=== PATIENT | male | born 1945 | race African-American/Black ===

== ENCOUNTER 2017-02-14 13:24 | Emergency (ER) | payer MEDICARE, MEDICAID ==
[~2017-02-14] VITALS: Ht 189.2 cm; Wt 100.0 kg
[~2017-02-14 13:24] MED LIST: HTN MEDS; METFORMIN; POTASSIUM
[2017-02-14 13:35] VITALS: BP 132/76
== END 2017-02-14 16:43 | disposition home or self-care (01) ==
LOC: ER 14:47
DX: L03.114 Cellulitis of left upper limb (principal); E11.9 Type 2 diabetes mellitus without complications; I10 Essential (primary) hypertension; Z87.891 Personal history of nicotine dependence; Z96.649 Presence of unspecified artificial hip joint
CPT/HCPCS: 99283

== ENCOUNTER 2018-03-25 12:11 | Emergency (ER) | payer MEDICARE, MEDICAID ==
[~2018-03-25] VITALS: Ht 190.5 cm; Wt 96.0 kg
[2018-03-25 16:31] VITALS: BP 142/88
== END 2018-03-25 16:33 | disposition home or self-care (01) ==
LOC: ER 12:11
DX: K08.89 Other specified disorders of teeth and supporting structures (principal); R07.0 Pain in throat; E11.9 Type 2 diabetes mellitus without complications; I10 Essential (primary) hypertension; Z96.643 Presence of artificial hip joint, bilateral
CPT/HCPCS: 87070; 87430; 99283

== ENCOUNTER 2019-10-20 14:06 | Emergency (ER) | payer MEDICARE, MEDICAID ==
[~2019-10-20] VITALS: Ht 188 cm; Wt 96.0 kg
[2019-10-20] MEDS ORDERED: KETOROLAC 15MG/ML VIAL IV ONE (16:30)
[2019-10-20 16:42] LABS: BASOPHILS % 0.4 % (0.0-2.0); EOSINOPHILS % 3.8 % (0.0-5.0); HEMATOCRIT. 32.6 % (42.0-52.0); LYMPHOCYTES % 18.6 % (20.0-50.0); MEAN CORPUSCULAR HEMOGLOBIN 29.5 pg (28.0-32.0); MEAN CORPUSCULAR VOLUME 87.5 fL (80.0-94.0); MEAN PLATELET VOLUME 7.4 fl (7.4-10.4); MONOCYTES % 11.7 % (2.0-8.0); NEUTROPHILS % 65.5 % (40.0-76.0); PLATELET 259 x1000/uL (130-400); RED BLOOD CELL COUNT 3.73 mill/uL (4.7-6.1); RED CELL DISTRIBUTION WIDTH 13.2 % (11.6-14.6)
[2019-10-20 16:46] LABS: CHLORIDE 104 mEq/L (98-107)
[2019-10-20] MEDS ORDERED: ASPIRIN 325MG TABLET PO ONE (17:15)
[2019-10-20 19:00] VITALS: BP 146/88
== END 2019-10-20 19:19 | disposition home or self-care (01) ==
LOC: ER 14:06 → CANBEDREQ 19:25
DX: R79.89 Other specified abnormal findings of blood chemistry (principal); R06.00 Dyspnea, unspecified; E11.9 Type 2 diabetes mellitus without complications; I10 Essential (primary) hypertension; Z79.84 Long term (current) use of oral hypoglycemic drugs; Z96.649 Presence of unspecified artificial hip joint
CPT/HCPCS: 36415; 71045; 80053; 83880; 84484; 85025; 93005; 96374; 99284; J1885

== ENCOUNTER 2020-01-10 14:23 | Emergency (ER) | payer MEDICARE, MEDICAID ==
[~2020-01-10] VITALS: Ht 188 cm; Wt 94.0 kg
[2020-01-10 20:46] LABS: BASOPHILS % 0.8 % (0.0-2.0); HEMOGLOBIN. 12.6 g/dL (14.0-18.0); LYMPHOCYTES % 37.8 % (20.0-50.0); MEAN CORPUSCULAR HEMOGLOBIN 29.9 pg (28.0-32.0); MEAN CORPUSCULAR VOLUME 87.7 fL (80.0-94.0); MEAN PLATELET VOLUME 7.3 fl (7.4-10.4); NEUTROPHILS % 46.4 % (40.0-76.0); PLATELET 170 x1000/uL (130-400); RED BLOOD CELL COUNT 4.21 mill/uL (4.7-6.1); RED CELL DISTRIBUTION WIDTH 14.1 % (11.6-14.6)
[2020-01-10 21:06] VITALS: BP 144/79
== END 2020-01-10 23:37 | disposition home or self-care (01) ==
LOC: ER 14:34
DX: R60.0 Localized edema (principal); E11.9 Type 2 diabetes mellitus without complications; I10 Essential (primary) hypertension; Z96.649 Presence of unspecified artificial hip joint
CPT/HCPCS: 36415; 82962; 85025; 85379; 93971; 99284

== ENCOUNTER 2020-05-09 15:38 | Emergency (ER) | payer MEDICARE, MEDICAID ==
[~2020-05-09] VITALS: Ht 188 cm; Wt 95.0 kg
[2020-05-09] MEDS ORDERED: FUROSEMIDE 20MG/2ML VIAL IVP ONE (16:15)
[2020-05-09 16:43] LABS: BASOPHILS % 1.1 % (0.0-2.0); EOSINOPHILS % 4.9 % (0.0-5.0); HEMATOCRIT. 33.6 % (42.0-52.0); HEMOGLOBIN. 11.2 g/dL (14.0-18.0); LYMPHOCYTES % 21.4 % (20.0-50.0); MEAN CORPUSCULAR HEMOGLOBIN 29.9 pg (28.0-32.0); MEAN CORPUSCULAR VOLUME 89.5 fL (80.0-94.0); MEAN PLATELET VOLUME 7.4 fl (7.4-10.4); NEUTROPHILS % 65.6 % (40.0-76.0); PLATELET 266 x1000/uL (130-400); RED BLOOD CELL COUNT 3.76 mill/uL (4.7-6.1); RED CELL DISTRIBUTION WIDTH 14.3 % (11.6-14.6)
[2020-05-09 16:51] LABS: CHLORIDE 103 mEq/L (98-107)
[2020-05-09] MEDS ORDERED: POTASSIUM CHLORIDE 20MEQ TABLET SR PO ONE (17:15)
[2020-05-09 18:45] VITALS: BP 146/87
== END 2020-05-09 19:04 | disposition left against medical advice (07) ==
LOC: ER 15:38
DX: Z20.828 Contact with and (suspected) exposure to other viral communicable diseases (principal); I11.0 Hypertensive heart disease with heart failure; I50.41 Acute combined systolic (congestive) and diastolic (congestive) heart failure; J18.9 Pneumonia, unspecified organism; E87.6 Hypokalemia
CPT/HCPCS: 36415; 71045; 80053; 83880; 84484; 85025; 93005; 93970; 99285; J1940

== ENCOUNTER 2020-07-20 23:10 | Emergency (ER) | payer MEDICARE, MEDICAID ==
[~2020-07-20] VITALS: Ht 188 cm; Wt 104.0 kg
[2020-07-20] MEDS ORDERED: ACETAMINOPHEN 325MG TABLET PO ONE (23:45)
[2020-07-21 00:10] LABS: BASOPHILS % 0.6 % (0.0-2.0); EOSINOPHILS % 4.5 % (0.0-5.0); HEMATOCRIT. 34.3 % (42.0-52.0); HEMOGLOBIN. 11.4 g/dL (14.0-18.0); LYMPHOCYTES % 25.4 % (20.0-50.0); MEAN CORPUSCULAR HEMOGLOBIN 28.9 pg (28.0-32.0); MEAN CORPUSCULAR VOLUME 87.3 fL (80.0-94.0); MEAN PLATELET VOLUME 7.7 fl (7.4-10.4); MONOCYTES % 9.6 % (2.0-8.0); NEUTROPHILS % 59.9 % (40.0-76.0); PLATELET 169 x1000/uL (130-400); RED BLOOD CELL COUNT 3.94 mill/uL (4.7-6.1); RED CELL DISTRIBUTION WIDTH 14.6 % (11.6-14.6)
[2020-07-21 00:11] LABS: CHLORIDE 102 mEq/L (98-107)
[2020-07-21 00:16] LABS: PARTIAL THROMBOPLASTIN TIME 31.1 sec (23.4-31.0); PROTHROMBIN TIME 10.6 sec (9.6-11.0)
[2020-07-21] MEDS ORDERED: ASPIRIN 81MG TABLET PO ONE (01:30)
[2020-07-21] MEDS ORDERED: CEFTRIAXONE 1 G PREMIX 50 ML IV ONE (01:30)
[2020-07-21] MEDS ORDERED: AZITHROMYCIN 500 MG in DEXT 5% WATER 250 ML IV ONE (01:30)
[2020-07-21] MEDS ORDERED: NITROGLYCERIN OINT 1GM/INCH UDPKT TD ONE (01:30)
[2020-07-21] MEDS ORDERED: FUROSEMIDE 40MG/4ML VIAL IV ONE (01:30)
[2020-07-21 02:47] VITALS: BP 145/82
== END 2020-07-21 02:10 | disposition left against medical advice (07) ==
LOC: ER 23:22
DX: I21.4 Non-ST elevation (NSTEMI) myocardial infarction (principal); E11.9 Type 2 diabetes mellitus without complications; I10 Essential (primary) hypertension; Z79.84 Long term (current) use of oral hypoglycemic drugs
CPT/HCPCS: 36415; 71045; 80053; 82962; 83880; 84484; 85025; 85610; 85730; 93005; 93970; 99285; J0456; J7060

== ENCOUNTER 2023-06-27 20:50 | Inpatient (IN) | payer MEDICARE, MEDICAID ==
[~2023-06-27] VITALS: Ht 188 cm; Wt 104.0 kg
[2023-06-27 22:06] LABS: BASOPHILS % 0.6 % (0.0-2.0); EOSINOPHILS % 9.3 % (0.0-5.0); HEMATOCRIT. 32.2 % (42.0-52.0); HEMOGLOBIN. 10.4 g/dL (14.0-18.0); LYMPHOCYTES % 19.7 % (20.0-50.0); MEAN CORPUSCULAR HEMOGLOBIN 27.5 pg (28.0-32.0); MEAN CORPUSCULAR HGB CONC 32.2 g/dL (31.0-37.0); MEAN CORPUSCULAR VOLUME 85.4 fL (80.0-94.0); MEAN PLATELET VOLUME 7.5 fl (7.4-10.4); MONOCYTES % 6.7 % (2.0-8.0); NEUTROPHILS % 63.7 % (40.0-76.0); PLATELET 175 x1000/uL (130-400); RED BLOOD CELL COUNT 3.77 mill/uL (4.7-6.1); RED CELL DISTRIBUTION WIDTH 14.5 % (11.6-14.6); WHITE BLOOD COUNT 4.8 x1000/uL (4.5-11.0)
[2023-06-27 22:16] LABS: PARTIAL THROMBOPLASTIN TIME 27.3 sec (23.4-31.0); PROTHROMBIN TIME 10.9 sec (9.6-11.0)
[2023-06-27 22:19] LABS: CHLORIDE 104 mEq/L (98-107); INDEX HEMOLYSI 1 (1-3); INDEX ICTERIC 1 (1-4); INDEX LIPEMIC 1 (1-3); SODIUM 137 mEq/L (136-145)
[2023-06-27 22:30] LABS: ALANINE AMINOTRANSFERASE 33 IU/L (13-61); ALBUMIN 3.2 g/dL (3.4-5.0); ASPARTATE AMINOTRANSFERASE 52 IU/L (15-37); BILIRUBIN TOTAL 0.7 mg/dL (0.1-1.0); CALCIUM 8.6 mg/dL (8.5-10.1); CARBON DIOXIDE 26 mEq/L (21-32); GLUCOSE 137 mg/dL (70-105); PROTEIN TOTAL 8.5 g/dL (6.0-8.3); UREA NITROGEN BLOOD 11 mg/dL (7-21)
[2023-06-27 22:32] LABS: TROPONIN I HIGH SENSITIVITY 181 ng/L (<78)
[2023-06-27] MEDS ORDERED: ALBUTEROL (0.5%) 2.5MG/0.5ML NEB HHN ONE (23:30)
[2023-06-27] MEDS ORDERED: ASPIRIN 325MG EC TABLET PO ONE (23:30)
[2023-06-28 00:36] LABS: CLARITY URINE CLEAR (CLEAR); COLOR URINE YELLOW (YELLOW); GLUCOSE URINE 3+ (NEGATIVE); KETONES URINE NEGATIVE (NEGATIVE); LEUKOCYTE ESTERASE URINE NEGATIVE (NEGATIVE); NITRITE URINE NEGATIVE (NEGATIVE); OCCULT BLOOD URINE TRACE (NEGATIVE); PROTEIN URINE 1+ (NEGATIVE); SPECIFIC GRAVITY URINE 1.017 (1.005-1.030)
[2023-06-28 00:41] VITALS: PULSE 91; RESP 21; O2SAT 96
[2023-06-28 01:04] LABS: RBC URINE 0-2 /hpf (0-2); SQUAMOUS EPITHELIAL CELL URINE NONE SEEN /lpf (RARE/1+)
[2023-06-28 01:05] LABS: BACTERIA URINE TRACE; WBC URINE 0-2 /hpf (0-2)
[2023-06-28] MEDS: POTASSIUM CHLORIDE 20MEQ/PACKET PO NR (02:47)
[2023-06-28] MEDS ORDERED: ONDANSETRON HCL 4MG/2ML INJ IV PRN (03:15)
[2023-06-28] MEDS ORDERED: ZOLPIDEM TARTRATE 5MG TABLET PO PRN (03:15)
[2023-06-28] MEDS ORDERED: ACETAMINOPHEN 325MG TABLET PO PRN ×2 (03:15)
[2023-06-28] MEDS ORDERED: DEXTROSE 50% WATER 50ML SYRINGE IV PRN (03:15)
[2023-06-28] MEDS ORDERED: IPRATROPIUM/ALBUTEROL 0.5-3(2.5)MG/3ML NEB HHN PRN (03:15)
[2023-06-28] MEDS ORDERED: DIPHENHYDRAMINE 50MG/ML VIAL IV PRN (03:15)
[2023-06-28] MEDS ORDERED: GUAIFENESIN 200MG/10ML SUGAR FREE UDC PO PRN (03:15)
[2023-06-28] MEDS: SODIUM CHLORIDE 0.9% INJ 3ML FLUSH IVF SCH ×2 (06:00→14:26)
[2023-06-28] MEDS: BLOOD SUGAR DIAGNOSTIC STRIP TEST SCH ×2 (06:40→12:29)
[2023-06-28] MEDS: INSULIN LISPRO 100 UNITS/ML SUBCUT SCH ×2 (07:32→12:33)
[2023-06-28] MEDS ORDERED: METFORMIN HCL 500MG TABLET PO SCH (07:40)
[2023-06-28 08:48] VITALS: BP 156/90; PULSE 81; RESP 20; TEMP 97.6
[2023-06-28] MEDS: POTASSIUM CHLORIDE 20MEQ TABLET SR PO SCH ×2 (08:51→13:00)
[2023-06-28] MEDS ORDERED: FUROSEMIDE 40MG/4ML VIAL IVP SCH (09:00)
[2023-06-28] MEDS ORDERED: CARVEDILOL 3.125 MG TABLET PO SCH (09:00)
[2023-06-28] MEDS ORDERED: ENOXAPARIN 30MG/0.3ML SYR SUBCUT SCH (09:00)
[2023-06-28] MEDS ORDERED: LISINOPRIL 5MG TABLET PO SCH (09:00)
[2023-06-28 09:57] LABS: TROPONIN I HIGH SENSITIVITY 210 ng/L (<78)
[2023-06-28 10:14] VITALS: BP 156/90; PULSE 95; RESP 20; TEMP 97.9
[2023-06-28 10:42] VITALS: BP 149/85; PULSE 81; RESP 20; TEMP 97.9
[2023-06-28] MEDS ORDERED: MAGNESIUM 2 G PREMIX 50 ML IV SCH (11:00)
[2023-06-28 11:46] LABS: INDEX HEMOLYSI 1 (1-3); INDEX ICTERIC 1 (1-4); INDEX LIPEMIC 1 (1-3)
[2023-06-28 11:52] LABS: IRON 76 ug/dL (50-175); TOTAL IRON BINDING CAPACITY 346 ug/dL (250-450)
[2023-06-28 12:00] VITALS: BP 147/79; PULSE 75; RESP 20; TEMP 97.7
[2023-06-28 12:01] LABS: CREATINE KINASE MB FRACTION 12.9 ng/mL (0.5-3.6)
[2023-06-28] MEDS ORDERED: SPIRONOLACTONE 25MG TABLET PO SCH (13:00)
[2023-06-28] MEDS ORDERED: IPRATROPIUM/ALBUTEROL 0.5-3(2.5)MG/3ML NEB HHN SCH (18:00)
[2023-06-28] MEDS ORDERED: BUDESONIDE 0.5MG/2ML NEB HHN SCH (18:00)
== END 2023-06-28 14:50 | disposition left against medical advice (07) | DRG 280 ==
LOC: ER 22:48 → 8WST 06-28 02:01
PROVIDERS: ADMIT Internal Medicine; ATTEND Internal Medicine
DX: I11.0 Hypertensive heart disease with heart failure (principal); I50.43 Acute on chronic combined systolic (congestive) and diastolic (congestive) heart failure; I21.A1 Myocardial infarction type 2; J96.00 Acute respiratory failure, unspecified whether with hypoxia or hypercapnia; J44.1 Chronic obstructive pulmonary disease with (acute) exacerbation; E44.1 Mild protein-calorie malnutrition; R59.0 Localized enlarged lymph nodes; Z60.2 Problems related to living alone; E87.6 Hypokalemia; E11.9 Type 2 diabetes mellitus without complications; D64.9 Anemia, unspecified; E83.42 Hypomagnesemia; Z53.29 Procedure and treatment not carried out because of patient's decision for other reasons; Z96.643 Presence of artificial hip joint, bilateral; M19.90 Unspecified osteoarthritis, unspecified site; Z87.891 Personal history of nicotine dependence; Z79.899 Other long term (current) drug therapy; Z68.29 Body mass index [BMI] 29.0-29.9, adult
CPT/HCPCS: 36415; 71045; 80053; 80061; 81003; 82550; 82553; 82728; 82962; 83036; 83540; 83550; 83735; 83880; 84484; 85025; 93005; 93970; 94640; 99285; J1650; J1940; J3475

== ENCOUNTER 2024-04-13 11:13 | Inpatient (IN) | payer MEDICARE, MEDICAID ==
[~2024-04-13] VITALS: Ht 188 cm; Wt 105.3 kg
[2024-04-13 11:20] VITALS: RESP 40
[2024-04-13] MEDS ORDERED: VANCOMYCIN 1G PREMIX 200 ML IV ONE (12:00)
[2024-04-13 12:23] LABS: CHLORIDE 94 mEq/L (98-107); POTASSIUM 4.8 mEq/L (3.5-5.1); SODIUM 133 mEq/L (136-145)
[2024-04-13 12:24] LABS: CARBON DIOXIDE 26 mEq/L (21-32)
[2024-04-13 12:29] LABS: CREATININE 1.7 mg/dL (0.6-1.3); GLUCOSE 152 mg/dL (70-105); UREA NITROGEN BLOOD 42 mg/dL (9-23)
[2024-04-13 12:36] LABS: TROPONIN I HIGH SENSITIVITY 276 ng/L (3.0-53)
[2024-04-13 12:38] LABS: HEMATOCRIT. 31.6 % (42.0-52.0); HEMOGLOBIN. 10.1 g/dL (14.0-18.0); MEAN CORPUSCULAR HEMOGLOBIN 26.3 pg (28.0-32.0); MEAN CORPUSCULAR VOLUME 82.4 fL (80.0-94.0); MEAN PLATELET VOLUME 9.2 fl (7.4-10.4); PLATELET 155 x1000/uL (130-400); RED BLOOD CELL COUNT 3.84 mill/uL (4.7-6.1); RED CELL DISTRIBUTION WIDTH 16.1 % (11.6-14.6); WHITE BLOOD COUNT 7.2 x1000/uL (4.5-11.0)
[2024-04-13 12:44] LABS: CREATINE KINASE 30722 IU/L (46-171)
[2024-04-13] MEDS ORDERED: FUROSEMIDE 40MG/4ML VIAL IVP ONE (12:45)
[2024-04-13] MEDS ORDERED: ENALAPRIL 2.5MG/2ML VIAL 2ML IV ONE (12:45)
[2024-04-13 12:49] LABS: DIFFERENTIAL COMMENT 1
[2024-04-13] MEDS: ENALAPRIL 1.25MG/ML VIAL 1ML IV NR (13:00)
[2024-04-13 13:16] VITALS: RESP 28
[2024-04-13 13:29] LABS: BG BASE EXCESS 4.3 mmol/L (-2.0-2.0); BG CARBOXYHEMOGLOBIN 0.1 % (0.5-1.5); BG DEOXYHEMOGLOBIN 0.3 % (0.0-5.0); BG FRACTION INSPIRED OXYGEN 100; BG HCO3 ACT 26.9 mmol/L (22.0-26.0); BG METHEMOGLOBIN 0.5 % (0.0-1.5); BG OXYGEN SATURATION 99.7 % (92.0-98.5); BG OXYHEMOGLOBIN 99.1 % (94.0-97.0); BG PCO2 32.9 mmHg (35.0-45.0); BG PO2 541.9 mmHg (75.0-100.0); BG SAMPLE SITE LEFT RADIAL; BG TOTAL HEMOGLOBIN 10.8 g/dL (12.0-18.0)
[2024-04-13 13:56] LABS: ANISOCYTOSIS 1+; PLATELET ESTIMATE NORMAL
[2024-04-13] MEDS ORDERED: LORAZEPAM 0.5MG TABLET PO PRN (14:45)
[2024-04-13] MEDS ORDERED: DOCUSATE SODIUM 100MG CAPSULE PO PRN (14:45)
[2024-04-13] MEDS ORDERED: ENOXAPARIN 40MG/0.4ML SYR SUBCUT SCH (14:45)
[2024-04-13 14:50] VITALS: RESP 28
[2024-04-13] MEDS: FUROSEMIDE 40MG/4ML VIAL IVP NR (14:58)
[2024-04-13] MEDS: VANCOMYCIN 1G PREMIX 200 ML IV NR (14:58)
[2024-04-13 15:43] LABS: IRON 23 ug/dL (65-175)
[2024-04-13 15:44] LABS: TRIGLYCERIDE 79 mg/dL (0-150)
[2024-04-13 15:45] LABS: LDL CHOLESTEROL 22 mg/dL (5-100)
[2024-04-13 15:46] LABS: ALANINE AMINOTRANSFERASE 142 IU/L (10-49); ALBUMIN 3.1 g/dL (3.2-4.8); ASPARTATE AMINOTRANSFERASE 652 IU/L (<34); BILIRUBIN DIRECT 1.9 mg/dL (<=3.0); BILIRUBIN TOTAL 2.8 mg/dL (0.1-1.0); CHOLESTEROL 79 mg/dL (<200); HDL CHOLESTEROL 37 mg/dL (>55); PROTEIN TOTAL 7.7 g/dL (6.0-8.3); TOTAL IRON BINDING CAPACITY 306 ug/dl (250-425)
[2024-04-13 15:49] LABS: FOLIC ACID (FOLATE) SERUM > 20.00 ng/mL (>5.38); VITAMIN B12 SERUM 305 pg/mL (211-911)
[2024-04-13 15:50] LABS: THYROID STIMULATING HORMONE 9.26 uIU/mL (0.55-4.78)
[2024-04-13] MEDS: BLOOD SUGAR DIAGNOSTIC STRIP TEST SCH (17:00)
[2024-04-13 18:00] LABS: LACTIC ACID 3.1 mmol/L (0.4-2.0)
[2024-04-13] MEDS ORDERED: CEFTRIAXONE 500 MG in DEXTROSE 5% WATER 50 ML IV SCH (18:15)
[2024-04-13] MEDS ORDERED: DOXYCYCLINE HYCLATE 100 MG/VIAL IV ONE (18:15)
[2024-04-13] MEDS: ENOXAPARIN 30MG/0.3ML SYR SUBCUT SCH (18:55)
[2024-04-13] MEDS: CEFTRIAXONE 1GM/50ML 50ML IV SCH (19:55)
[2024-04-13 20:20] VITALS: RESP 17
[2024-04-13] MEDS: INSULIN LISPRO 100 UNITS/ML SUBCUT SCH (20:27)
[2024-04-13] MEDS: DOXYCYCLINE 100MG/100ML 100 ML IV NR (20:27)
[2024-04-13 21:42] VITALS: RESP 38
[2024-04-13 22:01] LABS: CREATINE KINASE MB FRACTION 296.8 ng/mL (0.5-3.6)
[2024-04-13] MEDS: FUROSEMIDE 40MG TABLET PO SCH (22:31)
[2024-04-14] VITALS (12 sets, daily range): BP systolic 89–140; BP diastolic 56–96; PULSE 84–92; RESP 22–31; TEMP 97.2–98.5
[2024-04-14 06:20] LABS: CALCIUM 7.8 mg/dL (8.7-10.4); CHLORIDE 94 mEq/L (98-107); POTASSIUM 4.6 mEq/L (3.5-5.1); SODIUM 132 mEq/L (136-145)
[2024-04-14 06:21] LABS: CARBON DIOXIDE 27 mEq/L (21-32)
[2024-04-14 06:24] LABS: CREATINE KINASE MB FRACTION 201.8 ng/mL (0.5-3.6)
[2024-04-14 06:26] LABS: CREATININE 1.8 mg/dL (0.6-1.3); GLUCOSE 182 mg/dL (70-105); UREA NITROGEN BLOOD 40 mg/dL (9-23)
[2024-04-14 06:28] LABS: PHOSPHORUS 5.6 mg/dL (2.5-4.9)
[2024-04-14 06:30] LABS: HEMATOCRIT 35.4 % (42.0-52.0); HEMOGLOBIN 11.5 g/dL (14.0-18.0); MEAN CORPUSCULAR HEMOGLOBIN 26.5 pg (28.0-32.0); MEAN CORPUSCULAR HGB CONC 32.4 g/dL (31.0-37.0); MEAN CORPUSCULAR VOLUME 81.7 fL (80.0-94.0); PLATELET 198 x1000/uL (130-400); RED BLOOD CELL COUNT 4.34 mill/uL (4.7-6.1); RED CELL DISTRIBUTION WIDTH 16.1 % (11.6-14.6); WHITE BLOOD COUNT 11.6 x1000/uL (4.5-11.0)
[2024-04-14 07:50] LABS: TROPONIN I HIGH SENSITIVITY 251 ng/L (3.0-53)
[2024-04-14 07:51] LABS: CREATINE KINASE 15605 IU/L (46-171)
[2024-04-14] MEDS: ASPIRIN 81MG TABLET PO SCH (09:32)
[2024-04-14] MEDS: PANTOPRAZOLE SODIUM 40 MG/VIAL IV SCH (09:32)
[2024-04-14] MEDS: ENOXAPARIN 80MG/0.8ML SYR SUBCUT NR (09:33)
[2024-04-14] MEDS: ACETAMINOPHEN 325MG TABLET PO PRN (12:42)
[2024-04-14] MEDS: VANCOMYCIN 750MG/150ML IV SCH (19:30)
[2024-04-14 20:10] LABS: TROPONIN I HIGH SENSITIVITY 208 ng/L (3.0-53)
[2024-04-14] MEDS: ENOXAPARIN 120MG/0.8ML SYR SUBCUT SCH (21:33)
[2024-04-15] VITALS (14 sets, daily range): BP systolic 114–147; BP diastolic 67–114; PULSE 83–102; RESP 16–53; TEMP 97.8–99.6; O2SAT 98–100
[2024-04-15 05:35] LABS: CHLORIDE 95 mEq/L (98-107); POTASSIUM 3.7 mEq/L (3.5-5.1); SODIUM 132 mEq/L (136-145)
[2024-04-15 05:36] LABS: CALCIUM 7.5 mg/dL (8.7-10.4); CARBON DIOXIDE 29 mEq/L (21-32)
[2024-04-15 05:40] LABS: CREATINE KINASE MB FRACTION 56.3 ng/mL (0.5-3.6)
[2024-04-15 05:41] LABS: CREATININE 2.1 mg/dL (0.6-1.3); GLUCOSE 182 mg/dL (70-105); UREA NITROGEN BLOOD 57 mg/dL (9-23)
[2024-04-15 05:43] LABS: PHOSPHORUS 4.6 mg/dL (2.5-4.9)
[2024-04-15 05:47] LABS: HEMATOCRIT 31.3 % (42.0-52.0); HEMOGLOBIN 10.2 g/dL (14.0-18.0); MEAN CORPUSCULAR HEMOGLOBIN 26.6 pg (28.0-32.0); MEAN CORPUSCULAR HGB CONC 32.5 g/dL (31.0-37.0); MEAN CORPUSCULAR VOLUME 81.6 fL (80.0-94.0); PLATELET 196 x1000/uL (130-400); RED BLOOD CELL COUNT 3.84 mill/uL (4.7-6.1); RED CELL DISTRIBUTION WIDTH 16.2 % (11.6-14.6)
[2024-04-15 05:58] LABS: TROPONIN I HIGH SENSITIVITY 202 ng/L (3.0-53)
[2024-04-15 07:57] LABS: TROPONIN I HIGH SENSITIVITY 199 ng/L (3.0-53)
[2024-04-15] MEDS: FUROSEMIDE 40MG TABLET PO SCH ×2 (08:22→16:25)
[2024-04-15 08:27] LABS: CREATINE KINASE 7920 IU/L (46-171)
[2024-04-15] MEDS: FUROSEMIDE 40MG TABLET PO NR (10:36)
[2024-04-15] MEDS: IPRATROPIUM/ALBUTEROL 0.5-3(2.5)MG/3ML NEB HHN PRN (14:23)
[2024-04-15] MEDS ORDERED: CLINDAMYCIN 600 MG in DEXTROSE 5% WATER 50 ML IV SCH (14:45)
[2024-04-15] MEDS: CLINDAMYCIN 600MG PREMIX 50 ML IV SCH (16:25)
[2024-04-15] MEDS: VANCOMYCIN 1.25GM PMX (XELLIA) 250 ML IV NR (16:25)
[2024-04-15] MEDS ORDERED: METF-416 PO (16:29)
[2024-04-15] MEDS ORDERED: GLIP10TA10 PO (16:29)
[2024-04-15] MEDS ORDERED: OXYC80TA40 PO (16:29)
[2024-04-15] MEDS ORDERED: DULA0.75 SUBCUT (16:29)
[2024-04-15] MEDS ORDERED: POTA-205 PO (16:29)
[2024-04-15] MEDS ORDERED: AMLO10TA80 PO (16:29)
[2024-04-15] MEDS ORDERED: HYDR-4009 PO (16:29)
[2024-04-15] MEDS ORDERED: FURO40TA5 PO (16:29)
[2024-04-15] MEDS ORDERED: TAMS-11 PO (16:29)
[2024-04-15] MEDS: METHYLPREDNISOLONE SOD SUCC 40MG/ML (ACT-O-VIAL) IV SCH (17:13)
[2024-04-15] MEDS: ENOXAPARIN 40MG/0.4ML SYR SUBCUT SCH (18:00)
[2024-04-15] MEDS: SODIUM HYPOCHLORITE (0.25%) 480ML SOLUTION (HALF STRENGTH) TOP SCH (18:28)
[2024-04-15] MEDS: IPRATROPIUM/ALBUTEROL 0.5-3(2.5)MG/3ML NEB HHN SCH (21:42)
[2024-04-16] VITALS (16 sets, daily range): BP systolic 122–164; BP diastolic 77–146; PULSE 81–97; RESP 16–39; TEMP 97.5–98.6; O2SAT 95–98
[2024-04-16 07:24] LABS: HEMATOCRIT. 30.2 % (42.0-52.0); HEMOGLOBIN. 9.7 g/dL (14.0-18.0); MEAN CORPUSCULAR HEMOGLOBIN 26.4 pg (28.0-32.0); MEAN CORPUSCULAR HGB CONC 32.2 g/dL (31.0-37.0); MEAN CORPUSCULAR VOLUME 81.9 fL (80.0-94.0); MEAN PLATELET VOLUME 8.9 fl (7.4-10.4); PLATELET 187 x1000/uL (130-400); RED BLOOD CELL COUNT 3.69 mill/uL (4.7-6.1); RED CELL DISTRIBUTION WIDTH 16.4 % (11.6-14.6); WHITE BLOOD COUNT 8.9 x1000/uL (4.5-11.0)
[2024-04-16 07:28] LABS: CARBON DIOXIDE 27 mEq/L (21-32); CHLORIDE 95 mEq/L (98-107); POTASSIUM 3.7 mEq/L (3.5-5.1); SODIUM 130 mEq/L (136-145)
[2024-04-16 07:29] LABS: CALCIUM 7.6 mg/dL (8.7-10.4)
[2024-04-16 07:34] LABS: GLUCOSE 304 mg/dL (70-105); UREA NITROGEN BLOOD 56 mg/dL (9-23)
[2024-04-16 07:36] LABS: PHOSPHORUS 4.7 mg/dL (2.5-4.9)
[2024-04-16 07:39] LABS: DIFFERENTIAL COMMENT 1
[2024-04-16 07:59] LABS: INR 1.1; PROTHROMBIN TIME 11.7 sec (9.6-11.0)
[2024-04-16] MEDS: FUROSEMIDE 40MG TABLET PO SCH (08:44)
[2024-04-16] MEDS: METOPROLOL SUCCINATE 25MG ER TABLET PO SCH (09:01)
[2024-04-16] MEDS: INSULIN LISPRO 100 UNITS/ML SUBCUT SCH (09:03)
[2024-04-16 15:12] LABS: CREATINE KINASE 6082 IU/L (46-171)
[2024-04-16 15:28] LABS: ANISOCYTOSIS 1+; PLATELET ESTIMATE NORMAL
[2024-04-16] MEDS: VANCOMYCIN 1000MG/250ML IV NR (15:48)
[2024-04-17] VITALS (16 sets, daily range): BP systolic 134–175; BP diastolic 83–103; PULSE 85–106; RESP 22–45; TEMP 97.4–98.9; O2SAT 96
[2024-04-17 05:56] LABS: HEMATOCRIT 30.1 % (42.0-52.0); HEMOGLOBIN 9.8 g/dL (14.0-18.0); MEAN CORPUSCULAR HEMOGLOBIN 26.1 pg (28.0-32.0); MEAN CORPUSCULAR HGB CONC 32.4 g/dL (31.0-37.0); MEAN CORPUSCULAR VOLUME 80.3 fL (80.0-94.0); PLATELET 217 x1000/uL (130-400); RED BLOOD CELL COUNT 3.75 mill/uL (4.7-6.1); RED CELL DISTRIBUTION WIDTH 16.1 % (11.6-14.6); WHITE BLOOD COUNT 12.6 x1000/uL (4.5-11.0)
[2024-04-17 06:18] LABS: CARBON DIOXIDE 28 mEq/L (21-32); CHLORIDE 95 mEq/L (98-107); POTASSIUM 3.4 mEq/L (3.5-5.1); SODIUM 132 mEq/L (136-145)
[2024-04-17 06:23] LABS: CREATININE 2.2 mg/dL (0.6-1.3); GLUCOSE 189 mg/dL (70-105)
[2024-04-17 06:24] LABS: UREA NITROGEN BLOOD 67 mg/dL (9-23)
[2024-04-17 06:26] LABS: PHOSPHORUS 4.9 mg/dL (2.5-4.9)
[2024-04-17 08:24] LABS: CREATINE KINASE 3830 IU/L (46-171)
[2024-04-17] MEDS: ONDANSETRON HCL 4MG/2ML INJ IV PRN (11:15)
[2024-04-17] MEDS: POTASSIUM CHLORIDE 20MEQ TABLET SR PO NR (11:18)
[2024-04-17] MEDS: SODIUM CHLORIDE 0.9% 1,000 ML IV SCH (14:31)
[2024-04-17] MEDS: VANCOMYCIN 1.5GM/250ML 250 ML IV SCH (16:15)
[2024-04-17] MEDS: CLONIDINE 0.1MG TABLET PO PRN (20:14)
[2024-04-18] VITALS (17 sets, daily range): BP systolic 115–148; BP diastolic 76–106; PULSE 85–105; RESP 14–44; TEMP 97.2–98.8; O2SAT 96–99
[2024-04-18 07:23] LABS: CHLORIDE 97 mEq/L (98-107); POTASSIUM 3.6 mEq/L (3.5-5.1); SODIUM 135 mEq/L (136-145)
[2024-04-18 07:24] LABS: CALCIUM 8.2 mg/dL (8.7-10.4); CARBON DIOXIDE 29 mEq/L (21-32)
[2024-04-18 07:29] LABS: GLUCOSE 208 mg/dL (70-105); UREA NITROGEN BLOOD 62 mg/dL (9-23)
[2024-04-18 08:45] LABS: HEMATOCRIT 32.1 % (42.0-52.0); HEMOGLOBIN 10.4 g/dL (14.0-18.0); MEAN CORPUSCULAR HEMOGLOBIN 26.1 pg (28.0-32.0); MEAN CORPUSCULAR HGB CONC 32.3 g/dL (31.0-37.0); MEAN CORPUSCULAR VOLUME 80.7 fL (80.0-94.0); PLATELET 280 x1000/uL (130-400); RED BLOOD CELL COUNT 3.97 mill/uL (4.7-6.1); RED CELL DISTRIBUTION WIDTH 16.7 % (11.6-14.6); WHITE BLOOD COUNT 14.2 x1000/uL (4.5-11.0)
[2024-04-18] MEDS: FAMOTIDINE 20MG/2ML VIAL IV SCH (09:13)
[2024-04-18] MEDS: INSULIN GLARGINE 100 UNITS/ML SUBCUT SCH (09:31)
[2024-04-18] MEDS: FUROSEMIDE 40MG/4ML VIAL IVP SCH (19:17)
[2024-04-19] VITALS (10 sets, daily range): BP systolic 118–142; BP diastolic 66–90; PULSE 74–89; RESP 20–36; TEMP 97.2–98.4; O2SAT 100
[2024-04-19] MEDS: VANCOMYCIN 1.25GM PMX (XELLIA) 250 ML IV SCH (05:40)
[2024-04-19 07:11] LABS: CLARITY URINE CLEAR (CLEAR); COLOR URINE YELLOW (YELLOW); GLUCOSE URINE NEGATIVE (NEGATIVE); KETONES URINE NEGATIVE (NEGATIVE); LEUKOCYTE ESTERASE URINE NEGATIVE (NEGATIVE); NITRITE URINE NEGATIVE (NEGATIVE); OCCULT BLOOD URINE TRACE (NEGATIVE); PROTEIN URINE NEGATIVE (NEGATIVE); UROBILINOGEN URINE 0.2 E.U./dL (0.2-1.0)
[2024-04-19 07:24] LABS: HEMATOCRIT. 27.1 % (42.0-52.0); HEMOGLOBIN. 8.9 g/dL (14.0-18.0); MEAN CORPUSCULAR HEMOGLOBIN 26.1 pg (28.0-32.0); MEAN CORPUSCULAR HGB CONC 32.7 g/dL (31.0-37.0); MEAN CORPUSCULAR VOLUME 79.9 fL (80.0-94.0); PLATELET 248 x1000/uL (130-400); RED BLOOD CELL COUNT 3.39 mill/uL (4.7-6.1); RED CELL DISTRIBUTION WIDTH 16.3 % (11.6-14.6); WHITE BLOOD COUNT 9.9 x1000/uL (4.5-11.0)
[2024-04-19 07:26] LABS: CARBON DIOXIDE 31 mEq/L (21-32); CHLORIDE 98 mEq/L (98-107); POTASSIUM 3.5 mEq/L (3.5-5.1); SODIUM 137 mEq/L (136-145)
[2024-04-19 07:27] LABS: CALCIUM 8.1 mg/dL (8.7-10.4)
[2024-04-19 07:32] LABS: GLUCOSE 145 mg/dL (70-105); UREA NITROGEN BLOOD 66 mg/dL (9-23)
[2024-04-19 07:34] LABS: PHOSPHORUS 4.4 mg/dL (2.5-4.9)
[2024-04-19 07:43] LABS: DIFFERENTIAL COMMENT 1
[2024-04-19 08:01] LABS: SQUAMOUS EPITHELIAL CELL URINE NONE SEEN /lpf (RARE/1+); WBC URINE 0-2 /hpf (0-2)
[2024-04-19 08:02] LABS: BACTERIA URINE NONE SEEN; RBC URINE NONE SEEN /hpf (0-2)
[2024-04-19] MEDS: METOPROLOL SUCCINATE 25MG ER TABLET PO SCH (08:39)
[2024-04-19] MEDS: METHYLPREDNISOLONE SOD SUCC 40MG/ML (ACT-O-VIAL) IV SCH (08:39)
[2024-04-19] MEDS: LIDOCAINE 5% PATCH TOP SCH (10:15)
[2024-04-19 15:12] LABS: PLATELET ESTIMATE NORMAL
[2024-04-20] VITALS (9 sets, daily range): BP systolic 102–126; BP diastolic 64–84; PULSE 63–100; RESP 16–29; TEMP 97.1–98.5
[2024-04-20 06:55] LABS: POTASSIUM 3.5 mEq/L (3.5-5.1)
[2024-04-20 06:57] LABS: CALCIUM 8.2 mg/dL (8.7-10.4)
[2024-04-20 07:01] LABS: CREATININE 2.2 mg/dL (0.6-1.3)
[2024-04-20 07:06] LABS: HEMATOCRIT. 22.3 % (42.0-52.0); HEMOGLOBIN. 7.2 g/dL (14.0-18.0); MEAN CORPUSCULAR HEMOGLOBIN 26.4 pg (28.0-32.0); MEAN CORPUSCULAR HGB CONC 32.4 g/dL (31.0-37.0); MEAN CORPUSCULAR VOLUME 81.6 fL (80.0-94.0); MEAN PLATELET VOLUME 7.8 fl (7.4-10.4); PLATELET 198 x1000/uL (130-400); RED BLOOD CELL COUNT 2.73 mill/uL (4.7-6.1); RED CELL DISTRIBUTION WIDTH 16.3 % (11.6-14.6); WHITE BLOOD COUNT 7.9 x1000/uL (4.5-11.0)
[2024-04-20 07:26] LABS: DIFFERENTIAL COMMENT 1
[2024-04-20] MEDS: INSULIN GLARGINE 100 UNITS/ML SUBCUT SCH (11:00)
[2024-04-20 11:15] LABS: ANISOCYTOSIS 1+; MICROCYTOSIS 1+; PLATELET ESTIMATE NORMAL
[2024-04-20] MEDS: SODIUM CHLORIDE 0.9% 1,000 ML IV SCH (11:29)
[2024-04-20] MEDS ORDERED: NALOXONE HCL 0.4MG/ML VIAL IV PRN (12:45)
[2024-04-20] MEDS: MORPHINE SULFATE 2 MG/ML CPJ (NOT FOR IM USE) IV PRN (13:09)
[2024-04-20] MEDS: GUAIFENESIN 200MG/10ML SUGAR FREE UDC PO PRN (20:28)
[2024-04-21] VITALS: BP 104/62; PULSE 86; RESP 20; TEMP 98.1
[2024-04-21 04:00] VITALS: BP 132/69; PULSE 84; RESP 20; TEMP 97.9
[2024-04-21] MEDS: VANCOMYCIN 1.5GM/250ML 250 ML IV SCH (05:31)
[2024-04-21 08:00] VITALS: BP 122/68; PULSE 81; RESP 19; TEMP 98
[2024-04-21 09:45] LABS: MEAN CORPUSCULAR HEMOGLOBIN 26.8 pg (28.0-32.0); MEAN CORPUSCULAR HGB CONC 33.1 g/dL (31.0-37.0); PLATELET 210 x1000/uL (130-400); RED BLOOD CELL COUNT 2.41 mill/uL (4.7-6.1); RED CELL DISTRIBUTION WIDTH 16.8 % (11.6-14.6); WHITE BLOOD COUNT 9.9 x1000/uL (4.5-11.0)
[2024-04-21 09:50] LABS: CHLORIDE 99 mEq/L (98-107); POTASSIUM 3.7 mEq/L (3.5-5.1); SODIUM 136 mEq/L (136-145)
[2024-04-21 09:51] LABS: CALCIUM 8.5 mg/dL (8.7-10.4); CARBON DIOXIDE 30 mEq/L (21-32)
[2024-04-21 09:56] LABS: CREATININE 2.2 mg/dL (0.6-1.3); GLUCOSE 172 mg/dL (70-105); UREA NITROGEN BLOOD 83 mg/dL (9-23)
[2024-04-21 09:58] LABS: PHOSPHORUS 4.7 mg/dL (2.5-4.9)
[2024-04-21 10:37] LABS: HEMOGLOBIN 6.4 g/dL (14.0-18.0)
[2024-04-21 10:38] LABS: HEMATOCRIT 19.5 % (42.0-52.0)
[2024-04-21 12:00] VITALS: BP 112/67; PULSE 84; RESP 20; TEMP 97.6
[2024-04-21 16:00] VITALS: BP 123/68; PULSE 84; RESP 19; TEMP 98
[2024-04-21 20:00] VITALS: BP 118/70; PULSE 97; RESP 19; TEMP 98.1
[2024-04-22] VITALS (13 sets, daily range): BP systolic 103–144; BP diastolic 54–79; PULSE 61–95; RESP 18–22; TEMP 96.9–98; O2SAT 96
[2024-04-22 06:27] LABS: HEMATOCRIT. 21.6 % (42.0-52.0); HEMOGLOBIN. 7.1 g/dL (14.0-18.0); MEAN CORPUSCULAR HEMOGLOBIN 27.2 pg (28.0-32.0); MEAN CORPUSCULAR HGB CONC 33.1 g/dL (31.0-37.0); MEAN CORPUSCULAR VOLUME 82.4 fL (80.0-94.0); MEAN PLATELET VOLUME 7.4 fl (7.4-10.4); PLATELET 191 x1000/uL (130-400); RED BLOOD CELL COUNT 2.62 mill/uL (4.7-6.1); RED CELL DISTRIBUTION WIDTH 16.6 % (11.6-14.6); WHITE BLOOD COUNT 9.2 x1000/uL (4.5-11.0)
[2024-04-22 06:30] LABS: DIFFERENTIAL COMMENT 1
[2024-04-22 06:39] LABS: CHLORIDE 100 mEq/L (98-107); POTASSIUM 3.5 mEq/L (3.5-5.1); SODIUM 138 mEq/L (136-145)
[2024-04-22 06:42] LABS: CALCIUM 8.8 mg/dL (8.7-10.4); CARBON DIOXIDE 29 mEq/L (21-32)
[2024-04-22 06:46] LABS: PROTHROMBIN TIME 11.3 sec (9.6-11.0)
[2024-04-22 06:47] LABS: ALANINE AMINOTRANSFERASE 90 IU/L (10-49); CREATININE 2.2 mg/dL (0.6-1.3); GLUCOSE 137 mg/dL (70-105); UREA NITROGEN BLOOD 78 mg/dL (9-23)
[2024-04-22 06:49] LABS: ASPARTATE AMINOTRANSFERASE 85 IU/L (<34); BILIRUBIN DIRECT 0.7 mg/dL (<=3.0); BILIRUBIN TOTAL 1.1 mg/dL (0.1-1.0); PROTEIN TOTAL 6.6 g/dL (6.0-8.3)
[2024-04-22 07:05] LABS: HEPATITIS B SURFACE ANTIGEN NEGATIVE (Negative)
[2024-04-22 07:25] LABS: HEPATITIS A AB IGM NEGATIVE (Negative); HEPATITIS B CORE AB IGM NEGATIVE (Negative)
[2024-04-22 07:26] LABS: HEPATITIS C AB REACTIVE (Pos) (Negative)
[2024-04-22] MEDS: IPRATROPIUM/ALBUTEROL 0.5-3(2.5)MG/3ML NEB HHN SCH (08:59)
[2024-04-22] MEDS ORDERED: MIDAZOLAM HCL 2 MG/2 ML VIAL ONE (09:38)
[2024-04-22] MEDS ORDERED: FENTANYL CITRATE/PF 50MCG/ML 2ML VIAL ONE (09:38)
[2024-04-22] MEDS: BUDESONIDE 0.5MG/2ML NEB HHN SCH (14:34)
[2024-04-22 22:16] LABS: ANISOCYTOSIS 1+; PLATELET ESTIMATE NORMAL
[2024-04-23] VITALS (12 sets, daily range): BP systolic 113–154; BP diastolic 62–78; PULSE 66–95; RESP 18–22; TEMP 97.2–99.2; O2SAT 94–95
[2024-04-23 09:58] LABS: MEAN CORPUSCULAR HEMOGLOBIN 27.6 pg (28.0-32.0); MEAN CORPUSCULAR HGB CONC 34.1 g/dL (31.0-37.0); MEAN CORPUSCULAR VOLUME 81.1 fL (80.0-94.0); PLATELET 199 x1000/uL (130-400); RED BLOOD CELL COUNT 2.39 mill/uL (4.7-6.1); RED CELL DISTRIBUTION WIDTH 16.2 % (11.6-14.6); WHITE BLOOD COUNT 9.8 x1000/uL (4.5-11.0)
[2024-04-23 10:03] LABS: CHLORIDE 101 mEq/L (98-107); POTASSIUM 3.4 mEq/L (3.5-5.1); SODIUM 139 mEq/L (136-145)
[2024-04-23 10:04] LABS: CARBON DIOXIDE 33 mEq/L (21-32)
[2024-04-23 10:09] LABS: GLUCOSE 123 mg/dL (70-105); UREA NITROGEN BLOOD 74 mg/dL (9-23)
[2024-04-23 10:11] LABS: PHOSPHORUS 3.4 mg/dL (2.5-4.9)
[2024-04-23 10:46] LABS: HEMATOCRIT 19.4 % (42.0-52.0); HEMOGLOBIN 6.6 g/dL (14.0-18.0)
[2024-04-23 16:39] LABS: HEMATOCRIT 18.6 % (42.0-52.0); HEMOGLOBIN 6.2 g/dL (14.0-18.0)
[2024-04-24] VITALS (10 sets, daily range): BP systolic 130–152; BP diastolic 75–94; PULSE 66–101; RESP 16–23; TEMP 97–99; O2SAT 99
[2024-04-24 06:33] LABS: POTASSIUM 3.7 mEq/L (3.5-5.1)
[2024-04-24 06:34] LABS: CALCIUM 8.2 mg/dL (8.7-10.4)
[2024-04-24 06:39] LABS: CREATININE 1.9 mg/dL (0.6-1.3)
[2024-04-24 06:42] LABS: HEMATOCRIT. 22.6 % (42.0-52.0); HEMOGLOBIN. 7.4 g/dL (14.0-18.0); MEAN CORPUSCULAR HEMOGLOBIN 27.1 pg (28.0-32.0); MEAN CORPUSCULAR VOLUME 82.2 fL (80.0-94.0); MEAN PLATELET VOLUME 7.2 fl (7.4-10.4); PLATELET 211 x1000/uL (130-400); RED BLOOD CELL COUNT 2.75 mill/uL (4.7-6.1); RED CELL DISTRIBUTION WIDTH 16.7 % (11.6-14.6); WHITE BLOOD COUNT 9.6 x1000/uL (4.5-11.0)
[2024-04-24 06:52] LABS: PROTHROMBIN TIME 11.3 sec (9.6-11.0)
[2024-04-24 06:57] LABS: DIFFERENTIAL COMMENT 1
[2024-04-24] MEDS: DIATR MEGLU/DIATRIZOATE SOLN 30ML PO NR (10:59)
[2024-04-24 17:57] LABS: ANISOCYTOSIS 1+; PLATELET ESTIMATE NORMAL
[2024-04-24] MEDS: METOCLOPRAMIDE HCL 10MG/2ML VIAL IV SCH (17:58)
[2024-04-24 20:35] LABS: ALANINE AMINOTRANSFERASE 60 IU/L (10-49); ALBUMIN 2.7 g/dL (3.2-4.8); ASPARTATE AMINOTRANSFERASE 70 IU/L (<34); BILIRUBIN TOTAL 1.8 mg/dL (0.1-1.0); PROTEIN TOTAL 6.6 g/dL (6.0-8.3)
[2024-04-25] VITALS (10 sets, daily range): BP systolic 95–138; BP diastolic 58–91; PULSE 84–99; RESP 18–22; TEMP 96.9–97.8; O2SAT 96–99
[2024-04-25 07:41] LABS: POTASSIUM 3.6 mEq/L (3.5-5.1)
[2024-04-25 07:42] LABS: CALCIUM 8.2 mg/dL (8.7-10.4)
[2024-04-25 07:47] LABS: CREATININE 1.9 mg/dL (0.6-1.3)
[2024-04-25 07:48] LABS: HEMATOCRIT. 23.2 % (42.0-52.0); HEMOGLOBIN. 7.8 g/dL (14.0-18.0); MEAN CORPUSCULAR HEMOGLOBIN 28.2 pg (28.0-32.0); MEAN CORPUSCULAR HGB CONC 33.9 g/dL (31.0-37.0); MEAN CORPUSCULAR VOLUME 83.3 fL (80.0-94.0); PLATELET 224 x1000/uL (130-400); RED BLOOD CELL COUNT 2.78 mill/uL (4.7-6.1); RED CELL DISTRIBUTION WIDTH 16.6 % (11.6-14.6); WHITE BLOOD COUNT 13.1 x1000/uL (4.5-11.0)
[2024-04-25 07:52] LABS: DIFFERENTIAL COMMENT 1
[2024-04-25 13:30] LABS: ANISOCYTOSIS 1+; PLATELET ESTIMATE NORMAL
[2024-04-25] MEDS: FUROSEMIDE 40MG/4ML VIAL IVP NR (16:32)
[2024-04-26] VITALS (9 sets, daily range): BP systolic 95–140; BP diastolic 58–90; PULSE 79–93; RESP 15–20; TEMP 97–98.7; O2SAT 97–99
[2024-04-26 05:09] LABS: POTASSIUM 3.3 mEq/L (3.5-5.1)
[2024-04-26 05:11] LABS: CALCIUM 8.3 mg/dL (8.7-10.4)
[2024-04-26 05:15] LABS: CREATININE 1.8 mg/dL (0.6-1.3)
[2024-04-26 05:33] LABS: HEMATOCRIT. 23.6 % (42.0-52.0); HEMOGLOBIN. 7.7 g/dL (14.0-18.0); MEAN CORPUSCULAR HEMOGLOBIN 27.7 pg (28.0-32.0); MEAN CORPUSCULAR HGB CONC 32.7 g/dL (31.0-37.0); MEAN CORPUSCULAR VOLUME 84.6 fL (80.0-94.0); MEAN PLATELET VOLUME 7.9 fl (7.4-10.4); PLATELET 208 x1000/uL (130-400); RED BLOOD CELL COUNT 2.79 mill/uL (4.7-6.1); RED CELL DISTRIBUTION WIDTH 17.4 % (11.6-14.6); WHITE BLOOD COUNT 9.2 x1000/uL (4.5-11.0)
[2024-04-26 06:14] LABS: DIFFERENTIAL COMMENT 1
[2024-04-26 19:33] LABS: PLATELET ESTIMATE NORMAL
[2024-04-26] MEDS: VANCOMYCIN 1.5GM/250ML 250 ML IV SCH (20:45)
[2024-04-27] VITALS (9 sets, daily range): BP systolic 114–142; BP diastolic 62–79; PULSE 77–88; RESP 14–20; TEMP 97.3–100.2
[2024-04-27] MEDS: ACETAMINOPHEN 325MG TABLET PO PRN (01:39)
[2024-04-27 07:03] LABS: MEAN CORPUSCULAR HEMOGLOBIN 27.9 pg (28.0-32.0); MEAN CORPUSCULAR HGB CONC 33.4 g/dL (31.0-37.0); MEAN CORPUSCULAR VOLUME 83.6 fL (80.0-94.0); MEAN PLATELET VOLUME 7.8 fl (7.4-10.4); PLATELET 205 x1000/uL (130-400); RED BLOOD CELL COUNT 2.26 mill/uL (4.7-6.1); WHITE BLOOD COUNT 7.4 x1000/uL (4.5-11.0)
[2024-04-27 07:09] LABS: POTASSIUM 3.3 mEq/L (3.5-5.1)
[2024-04-27 07:10] LABS: CALCIUM 8.1 mg/dL (8.7-10.4)
[2024-04-27 07:15] LABS: CREATININE 1.7 mg/dL (0.6-1.3)
[2024-04-27 07:38] LABS: DIFFERENTIAL COMMENT 1; HEMATOCRIT. 18.9 % (42.0-52.0); HEMOGLOBIN. 6.3 g/dL (14.0-18.0)
[2024-04-27] MEDS: POTASSIUM CHLORIDE 20MEQ TABLET SR PO NR (13:02)
[2024-04-27 13:45] LABS: ANISOCYTOSIS 1+; PLATELET ESTIMATE NORMAL
[2024-04-28] VITALS: BP 127/70; PULSE 78; RESP 20; TEMP 97.9
[2024-04-28 00:39] LABS: HEMATOCRIT 21.5 % (42.0-52.0)
[2024-04-28 04:00] VITALS: BP 130/77; PULSE 80; RESP 20; TEMP 98.2
[2024-04-28 07:25] LABS: BASOPHILS % 0.4 % (0.0-2.0); EOSINOPHILS % 0.8 % (0.0-5.0); HEMATOCRIT. 23.2 % (42.0-52.0); HEMOGLOBIN. 7.8 g/dL (14.0-18.0); LYMPHOCYTES % 7.3 % (20.0-50.0); MEAN CORPUSCULAR HEMOGLOBIN 27.9 pg (28.0-32.0); MEAN CORPUSCULAR HGB CONC 33.5 g/dL (31.0-37.0); MEAN CORPUSCULAR VOLUME 83.4 fL (80.0-94.0); MONOCYTES % 4.2 % (2.0-8.0); NEUTROPHILS % 87.3 % (40.0-76.0); PLATELET 195 x1000/uL (130-400); RED BLOOD CELL COUNT 2.78 mill/uL (4.7-6.1); WHITE BLOOD COUNT 7.4 x1000/uL (4.5-11.0)
[2024-04-28 07:32] LABS: CALCIUM 8.1 mg/dL (8.7-10.4); POTASSIUM 3.6 mEq/L (3.5-5.1)
[2024-04-28 07:37] LABS: CREATININE 1.5 mg/dL (0.6-1.3)
[2024-04-28 08:00] VITALS: BP 135/72; PULSE 78; RESP 20; TEMP 97.2
[2024-04-28] MEDS ORDERED: LIDOCAINE HCL 1% 10 MG/ML 10ML VIAL ONE (12:39)
[2024-04-28 16:00] VITALS: BP 129/78; PULSE 82; RESP 20; TEMP 98.1
[2024-04-28 20:00] VITALS: BP 141/87; PULSE 84; RESP 20; TEMP 97.4
[2024-04-29] VITALS (7 sets, daily range): BP systolic 103–146; BP diastolic 50–80; PULSE 48–87; RESP 18–20; TEMP 97.2–97.8
[2024-04-29 06:27] LABS: BASOPHILS % 0.5 % (0.0-2.0); EOSINOPHILS % 0.7 % (0.0-5.0); HEMATOCRIT. 21.9 % (42.0-52.0); HEMOGLOBIN. 7.4 g/dL (14.0-18.0); LYMPHOCYTES % 7.9 % (20.0-50.0); MEAN CORPUSCULAR HEMOGLOBIN 27.9 pg (28.0-32.0); MEAN CORPUSCULAR HGB CONC 33.7 g/dL (31.0-37.0); MEAN CORPUSCULAR VOLUME 82.8 fL (80.0-94.0); MEAN PLATELET VOLUME 7.8 fl (7.4-10.4); MONOCYTES % 5.2 % (2.0-8.0); NEUTROPHILS % 85.7 % (40.0-76.0); PLATELET 172 x1000/uL (130-400); RED BLOOD CELL COUNT 2.64 mill/uL (4.7-6.1); RED CELL DISTRIBUTION WIDTH 17.1 % (11.6-14.6); WHITE BLOOD COUNT 6.8 x1000/uL (4.5-11.0)
[2024-04-29 06:44] LABS: PROTHROMBIN TIME 11.2 sec (9.6-11.0)
[2024-04-29 06:46] LABS: POTASSIUM 3.8 mEq/L (3.5-5.1)
[2024-04-29 06:52] LABS: CREATININE 1.6 mg/dL (0.6-1.3)
[2024-04-29] MEDS: DEXTROSE 50% WATER 50ML SYRINGE IV PRN (20:38)
[2024-04-30] VITALS (10 sets, daily range): BP systolic 127–156; BP diastolic 75–84; PULSE 64–101; RESP 17–23; TEMP 97–98.1; O2SAT 98–100
[2024-04-30 07:08] LABS: BASOPHILS % 0.5 % (0.0-2.0); EOSINOPHILS % 0.6 % (0.0-5.0); HEMATOCRIT. 22.3 % (42.0-52.0); HEMOGLOBIN. 7.4 g/dL (14.0-18.0); LYMPHOCYTES % 8.1 % (20.0-50.0); MEAN CORPUSCULAR HEMOGLOBIN 27.8 pg (28.0-32.0); MEAN CORPUSCULAR HGB CONC 33.1 g/dL (31.0-37.0); MEAN CORPUSCULAR VOLUME 84.1 fL (80.0-94.0); MEAN PLATELET VOLUME 7.9 fl (7.4-10.4); MONOCYTES % 5.6 % (2.0-8.0); NEUTROPHILS % 85.2 % (40.0-76.0); PLATELET 172 x1000/uL (130-400); RED BLOOD CELL COUNT 2.65 mill/uL (4.7-6.1); RED CELL DISTRIBUTION WIDTH 17.3 % (11.6-14.6); WHITE BLOOD COUNT 6.7 x1000/uL (4.5-11.0)
[2024-04-30 07:31] LABS: POTASSIUM 3.9 mEq/L (3.5-5.1)
[2024-04-30 07:37] LABS: CREATININE 1.5 mg/dL (0.6-1.3)
[2024-04-30] MEDS: IPRATROPIUM/ALBUTEROL 0.5-3(2.5)MG/3ML NEB HHN PRN (13:17)
[2024-04-30] MEDS: FUROSEMIDE 40MG/4ML VIAL IVP SCH (15:45)
[2024-05-01] VITALS (8 sets, daily range): BP systolic 119–140; BP diastolic 50–88; PULSE 76–103; RESP 17–25; TEMP 97.5–97.7; O2SAT 97
[2024-05-01] MEDS ORDERED: MELATONIN 3MG TABLET PO SCH (01:30)
[2024-05-01] MEDS ORDERED: NON FORMULARY PATIENT HOME MED XX PRN (01:30)
[2024-05-01] MEDS: MELATONIN 3MG TABLET PO PRN (01:53)
[2024-05-01] MEDS: HYDROCODONE/ACETAMINOPHEN 5/325MG TABLET PO NR (01:59)
[2024-05-01] MEDS: VANCOMYCIN 1GM/200ML PMX (BAXTER) IV SCH (05:35)
[2024-05-01 07:15] LABS: BASOPHILS % 0.7 % (0.0-2.0); EOSINOPHILS % 0.6 % (0.0-5.0); HEMATOCRIT. 24.9 % (42.0-52.0); HEMOGLOBIN. 8.3 g/dL (14.0-18.0); LYMPHOCYTES % 8.8 % (20.0-50.0); MEAN CORPUSCULAR HEMOGLOBIN 28.3 pg (28.0-32.0); MEAN CORPUSCULAR HGB CONC 33.4 g/dL (31.0-37.0); MEAN CORPUSCULAR VOLUME 84.6 fL (80.0-94.0); MEAN PLATELET VOLUME 7.5 fl (7.4-10.4); MONOCYTES % 5.1 % (2.0-8.0); NEUTROPHILS % 84.8 % (40.0-76.0); PLATELET 167 x1000/uL (130-400); RED BLOOD CELL COUNT 2.95 mill/uL (4.7-6.1); RED CELL DISTRIBUTION WIDTH 16.8 % (11.6-14.6); WHITE BLOOD COUNT 6.7 x1000/uL (4.5-11.0)
[2024-05-01 07:21] LABS: CHLORIDE 98 mEq/L (98-107); POTASSIUM 3.9 mEq/L (3.5-5.1); SODIUM 137 mEq/L (136-145)
[2024-05-01 07:24] LABS: CALCIUM 8.3 mg/dL (8.7-10.4); CARBON DIOXIDE 32 mEq/L (21-32)
[2024-05-01 07:29] LABS: CREATININE 1.5 mg/dL (0.6-1.3); GLUCOSE 123 mg/dL (70-105); UREA NITROGEN BLOOD 42 mg/dL (9-23)
[2024-05-01 07:30] LABS: ALANINE AMINOTRANSFERASE 29 IU/L (10-49)
[2024-05-01 07:31] LABS: ALBUMIN 2.9 g/dL (3.2-4.8); ASPARTATE AMINOTRANSFERASE 48 IU/L (<34); BILIRUBIN DIRECT 0.6 mg/dL (<=3.0); BILIRUBIN TOTAL 1.2 mg/dL (0.1-1.0); PROTEIN TOTAL 6.8 g/dL (6.0-8.3)
[2024-05-01] MEDS: METOPROLOL SUCCINATE 25MG ER TABLET PO SCH (09:59)
[2024-05-01] MEDS: MAGNESIUM 2 G PREMIX 50 ML IV NR (13:52)
[2024-05-01] MEDS ORDERED: LANTUSUD SUBCUT (16:34)
[2024-05-01] MEDS ORDERED: FURO10VI3 IVP (16:34)
[2024-05-01] MEDS ORDERED: DAKIHS TOP (16:34)
[2024-05-01] MEDS ORDERED: IPRA3AMP9 HHN (16:34)
[2024-05-01] MEDS ORDERED: METO-396 PO (16:34)
[2024-05-01] MEDS ORDERED: MELA3TAB40 PO (16:34)
[2024-05-01] MEDS ORDERED: DEXTL PO (16:34)
[2024-05-01] MEDS ORDERED: DOCU-150 PO (16:34)
[2024-05-01] MEDS: IPRATROPIUM/ALBUTEROL 0.5-3(2.5)MG/3ML NEB HHN SCH (20:38)
[2024-05-02] VITALS (8 sets, daily range): BP systolic 97–129; BP diastolic 78–96; PULSE 83–103; RESP 15–22; TEMP 97.9–98.4; O2SAT 97
[2024-05-02 06:42] LABS: CARBON DIOXIDE 33 mEq/L (21-32); CHLORIDE 97 mEq/L (98-107); POTASSIUM 3.8 mEq/L (3.5-5.1); SODIUM 137 mEq/L (136-145)
[2024-05-02 06:43] LABS: BASOPHILS % 0.7 % (0.0-2.0); CALCIUM 8.2 mg/dL (8.7-10.4); HEMATOCRIT. 25.5 % (42.0-52.0); HEMOGLOBIN. 8.6 g/dL (14.0-18.0); LYMPHOCYTES % 8.6 % (20.0-50.0); MEAN CORPUSCULAR HEMOGLOBIN 28.5 pg (28.0-32.0); MEAN CORPUSCULAR HGB CONC 33.8 g/dL (31.0-37.0); MEAN CORPUSCULAR VOLUME 84.3 fL (80.0-94.0); MEAN PLATELET VOLUME 7.8 fl (7.4-10.4); MONOCYTES % 5.3 % (2.0-8.0); NEUTROPHILS % 84.4 % (40.0-76.0); PLATELET 159 x1000/uL (130-400); RED BLOOD CELL COUNT 3.02 mill/uL (4.7-6.1); RED CELL DISTRIBUTION WIDTH 17.9 % (11.6-14.6)
[2024-05-02 06:47] LABS: CREATININE 1.6 mg/dL (0.6-1.3); GLUCOSE 108 mg/dL (70-105)
[2024-05-02 06:48] LABS: UREA NITROGEN BLOOD 37 mg/dL (9-23)
== END 2024-05-02 16:10 | DRG 871 ==
LOC: ER 11:13 → 5EST 12:59 → EDBEDREQ 13:03 → EDBEDREQTM 13:03 → 7EST 04-20 09:55
PROVIDERS: ADMIT Internal Medicine; ATTEND Internal Medicine
PROC: 5A09357 Assistance with Respiratory Ventilation, Less than 24 Consecutive Hours, Continuous Positive Airway Pressure (ICD-10-PCS; principal; 2024-04-13)
PROC: 5A09357 Assistance with Respiratory Ventilation, Less than 24 Consecutive Hours, Continuous Positive Airway Pressure (ICD-10-PCS; 2024-04-16)
PROC: 5A09357 Assistance with Respiratory Ventilation, Less than 24 Consecutive Hours, Continuous Positive Airway Pressure (ICD-10-PCS; 2024-04-17)
PROC: 30233N1 Transfusion of Nonautologous Red Blood Cells into Peripheral Vein, Percutaneous Approach (ICD-10-PCS; 2024-04-23)
PROC: 02HV33Z Insertion of Infusion Device into Superior Vena Cava, Percutaneous Approach (ICD-10-PCS; 2024-04-28)
PROC: B518ZZA Fluoroscopy of Superior Vena Cava, Guidance (ICD-10-PCS; 2024-04-28)
DX: A41.02 Sepsis due to Methicillin resistant Staphylococcus aureus (principal); I21.4 Non-ST elevation (NSTEMI) myocardial infarction; I50.23 Acute on chronic systolic (congestive) heart failure; K68.3 Retroperitoneal hematoma; I33.0 Acute and subacute infective endocarditis; J96.01 Acute respiratory failure with hypoxia; L97.419 Non-pressure chronic ulcer of right heel and midfoot with unspecified severity; E44.1 Mild protein-calorie malnutrition; N17.9 Acute kidney failure, unspecified; M62.82 Rhabdomyolysis; I42.9 Cardiomyopathy, unspecified; G82.20 Paraplegia, unspecified; I13.0 Hypertensive heart and chronic kidney disease with heart failure and stage 1 through stage 4 chronic kidney disease, or unspecified chronic kidney disease; L03.115 Cellulitis of right lower limb; I25.10 Atherosclerotic heart disease of native coronary artery without angina pectoris; I87.2 Venous insufficiency (chronic) (peripheral); L97.529 Non-pressure chronic ulcer of other part of left foot with unspecified severity; I08.1 Rheumatic disorders of both mitral and tricuspid valves; E11.621 Type 2 diabetes mellitus with foot ulcer; D63.8 Anemia in other chronic diseases classified elsewhere; E66.9 Obesity, unspecified; G89.29 Other chronic pain; E11.22 Type 2 diabetes mellitus with diabetic chronic kidney disease; D50.9 Iron deficiency anemia, unspecified; N40.0 Benign prostatic hyperplasia without lower urinary tract symptoms; E11.51 Type 2 diabetes mellitus with diabetic peripheral angiopathy without gangrene; M51.16 Intervertebral disc disorders with radiculopathy, lumbar region; M47.812 Spondylosis without myelopathy or radiculopathy, cervical region; M47.26 Other spondylosis with radiculopathy, lumbar region; E53.8 Deficiency of other specified B group vitamins; E87.6 Hypokalemia; Z96.643 Presence of artificial hip joint, bilateral; E11.42 Type 2 diabetes mellitus with diabetic polyneuropathy; E11.649 Type 2 diabetes mellitus with hypoglycemia without coma; J43.9 Emphysema, unspecified; N18.9 Chronic kidney disease, unspecified; K57.30 Diverticulosis of large intestine without perforation or abscess without bleeding; T50.2X5A Adverse effect of carbonic-anhydrase inhibitors, benzothiadiazides and other diuretics, initial encounter; N28.1 Cyst of kidney, acquired; K74.60 Unspecified cirrhosis of liver; Z79.899 Other long term (current) drug therapy; Z91.148 Patient's other noncompliance with medication regimen for other reason; Y92.89 Other specified places as the place of occurrence of the external cause; Z79.84 Long term (current) use of oral hypoglycemic drugs; Z91.199 Patient's noncompliance with other medical treatment and regimen due to unspecified reason; Z87.891 Personal history of nicotine dependence; Z79.4 Long term (current) use of insulin
CPT/HCPCS: 36415; 36573; 36600; 71045; 73620; 74176; 76700; 76770; 78580; 80048; 80061; 80076; 80202; 81003; 82248; 82270; 82375; 82550; 82553; 82607; 82746; 82805; 82962; 83036; 83540; 83550; 83605; 83735; 83880; 84100; 84145; 84443; 84484; 85014; 85018; 85025; 85027; 85044; 85379; 86705; 86709; 86850; 86900; 86920; 87186; 87340; 93005; 93306; 93312; 93923; 93970; 94640; 94660; 97166; 97530; 99291; A6261; C1725; C1893; C9113; J0696; J1650; J1815; J1940; J2250; J2270; J2405; J2765; J2920; J3010; J3370; J3475; J3490; J7030; J7626; P9016; Q9963